=== PATIENT | male | born 1965 | race Caucasian/White ===

== ENCOUNTER 2017-08-29 13:20 | Inpatient (IN) | payer MEDICARE ==
[~2017-08-29] VITALS: Ht 188 cm; Wt 99.2 kg
[~2017-08-29 13:20] MED LIST: PERC7.5T13 PO; SOMA350T PO
[2017-08-29 13:22] VITALS: BP 140/90; PULSE 100; RESP 16; TEMP 98.9; O2SAT 99
[2017-08-29 14:23] LABS: AUTOMATED NEUTROPHIL # 6.5 TH/MM3 (1.8-7.7); BASOPHIL # 0.1 TH/MM3 (0-0.2); BASOPHIL % 0.6 % (0.0-2.0); EOSINOPHIL # 0.2 TH/MM3 (0-0.4); EOSINOPHIL % 1.6 % (0.0-4.0); HEMATOCRIT 46.3 % (39.0-51.0); HEMOGLOBIN 15.8 GM/DL (13.0-17.0); LYMPH % 24.9 % (9.0-44.0); LYMPHOCYTE # 2.5 TH/MM3 (1.0-4.8); MEAN CELL VOLUME 94.6 FL (80.0-100.0); MEAN CORPUSCULAR HEMOGLOBIN 32.2 PG (27.0-34.0); MEAN CORPUSCULAR HGB CONC 34.1 % (32.0-36.0); MONO % 7.2 % (0.0-8.0); MONOCYTE # 0.7 TH/MM3 (0-0.9); NEUT % 65.7 % (16.0-70.0); PLATELET COUNT 187 TH/MM3 (150-450); RED BLOOD COUNT 4.89 MIL/MM3 (4.50-5.90); RED CELL DISTRIBUTION WIDTH 13.9 % (11.6-17.2); WHITE BLOOD COUNT 9.9 TH/MM3 (4.0-11.0)
[2017-08-29 14:42] LABS: ALBUMIN 3.6 GM/DL (3.4-5.0); ALT (GPT) 48 U/L (12-78); AST (GOT) 22 U/L (15-37); BLOOD UREA NITROGEN 11 MG/DL (7-18); CALCIUM 8.7 MG/DL (8.5-10.1); CHLORIDE 103 MEQ/L (98-107); CREATININE 1.15 MG/DL (0.60-1.30); GLOMERULAR FILTRATION RATE 67 ML/MIN (>89); GLUCOSE,RANDOM 144 MG/DL (74-106); SODIUM (NA) 137 MEQ/L (136-145)
[2017-08-29 14:45] LABS: ALKALINE PHOSPHATASE 115 U/L (45-117); TOTAL BILIRUBIN ADULT 0.4 MG/DL (0.2-1.0)
[2017-08-29 14:52] LABS: ACETAMINOPHEN LESS THAN 2.0 MCG/ML (10.0-30.0)
--- NOTE | 2017-08-29 15:58 | PD ---
HPI Chief Complaint: Psychiatric Symptoms Time Seen by Provider: 15:33 Travel History International Travel<30 days: No Contact w/Intl Traveler<30days: No Traveled to known affect area: No History of Present Illness HPI 52-year-old male presents to the ED for evaluation of psychiatric illness. Patient has a history of bipolar disorder on depression. Per patient he used to be on medications but he no longer takes them. Per patient for the past 5 years has been having worsening depression apparently his family told him that if he did not come to get evaluated that we will Carey act him. Per patient he denies any homicidal ideation but states having some suicidal thoughts. Per patient he does not feel like life is worth living. He denies any drugs or alcohol. He denies any medical issues other than back pain which as chronic for him. He denies any new injuries. No stressors that could have exacerbated her depression. Patient for the most part is not very forthcoming with information. Patient has no allergies to medication. No other medical issues at this time. Unclear as to what exacerbated his symptoms today but appears to her family was very concerned. [facility] Social History Tobacco Use: No Allergies-Medications (Allergen,Severity, Reaction): Coded Allergies: No Known Allergies (Unverified , 03/02/15) Reported Meds & Prescriptions Reported Meds & Active Scripts Active Soma (Carisoprodol) 350 Mg Tab 350 Mg PO TID Percocet 7.5/325 (Oxycodone/Acetaminophen) Oxycodone 7.5/325 Acetaminophen Tab 1 Tab PO Q8HR PRN FOR PAIN Review of Systems Except as stated in HPI: all other systems reviewed are Neg Physical Exam Narrative GENERAL: SKIN: Warm and dry. HEAD: Atraumatic. Normocephalic. EYES: Pupils equal and round. No scleral icterus. No injection or drainage. ENT: No nasal bleeding or discharge. Mucous membranes pink and moist. Tongue midline. No uvula deviation. NECK: Trachea midline. No JVD. CARDIOVASCULAR: Regular rate and rhythm. No murmurs, S3, S4. RESPIRATORY: No accessory muscle use. Clear to auscultation. Breath sounds equal bilaterally. GASTROINTESTINAL: Abdomen soft, non-tender, nondistended. Hepatic and splenic margins not palpable. MUSCULOSKELETAL: Extremities without clubbing, cyanosis, or edema. No obvious deformities. NEUROLOGICAL: Awake and alert. No obvious cranial nerve deficits. Motor grossly within normal limits. Five out of 5 muscle strength in the arms and legs. Normal speech. PSYCHIATRIC: Appropriate mood and affect; insight and judgment normal. Data Data Last Documented VS Vital Signs Date Time Temp Pulse Resp B/P (MAP) Pulse Ox O2 Delivery O2 Flow Rate FiO2 08/29/17 13:22 98.9 100 16 140/90 (107) 99 Orders Orders Complete Blood Count With Diff (08/29/17 13:31) Comprehensive Metabolic Panel (08/29/17 13:31) Drug Screen, Random Urine (08/29/17 13:31) Alcohol (Ethanol) (08/29/17 13:31) Salicylates (Aspirin) (08/29/17 13:31) Tylenol (Acetaminophen) (08/29/17 13:31) Labs Laboratory Tests Test 08/29/17 13:37 White Blood Count 9.9 TH/MM3 Red Blood Count 4.89 MIL/MM3 Hemoglobin 15.8 GM/DL Hematocrit 46.3 % Mean Corpuscular Volume 94.6 FL Mean Corpuscular Hemoglobin 32.2 PG Mean Corpuscular Hemoglobin Concent 34.1 % Red Cell Distribution Width 13.9 % Platelet Count 187 TH/MM3 Mean Platelet Volume 8.0 FL Neutrophils (%) (Auto) 65.7 % Lymphocytes (%) (Auto) 24.9 % Monocytes (%) (Auto) 7.2 % Eosinophils (%) (Auto) 1.6 % Basophils (%) (Auto) 0.6 % Neutrophils # (Auto) 6.5 TH/MM3 Lymphocytes # (Auto) 2.5 TH/MM3 Monocytes # (Auto) 0.7 TH/MM3 Eosinophils # (Auto) 0.2 TH/MM3 Basophils # (Auto) 0.1 TH/MM3 CBC Comment DIFF FINAL Differential Comment Blood Urea Nitrogen 11 MG/DL Creatinine 1.15 MG/DL Random Glucose 144 MG/DL Total Protein 7.0 GM/DL Albumin 3.6 GM/DL Calcium Level 8.7 MG/DL Alkaline Phosphatase 115 U/L Aspartate Amino Transf (AST/SGOT) 22 U/L Alanine Aminotransferase (ALT/SGPT) 48 U/L Total Bilirubin 0.4 MG/DL Sodium Level 137 MEQ/L Potassium Level 3.7 MEQ/L Chloride Level 103 MEQ/L Carbon Dioxide Level 25.0 MEQ/L Anion Gap 9 MEQ/L Estimat Glomerular Filtration Rate 67 ML/MIN Salicylates Level 3.6 MG/DL Urine Opiates Screen NEG Acetaminophen Level LESS THAN 2.0 MCG/ML Urine Barbiturates Screen NEG Urine Amphetamines Screen NEG Urine Benzodiazepines Screen NEG Urine Cocaine Screen NEG Urine Cannabinoids Screen NEG Ethyl Alcohol Level LESS THAN 3 MG/DL MDM Medical Decision Making Medical Screen Exam Complete: Yes Emergency Medical Condition: Yes Medical Record Reviewed: Yes Interpretation(s) CBC & BMP Diagram 08/29/17 13:37 Total Protein 7.0, Albumin 3.6, Calcium Level 8.7, Alkaline Phosphatase 115, Aspartate Amino Transf (AST/SGOT) 22, Alanine Aminotransferase (ALT/SGPT) 48, Total Bilirubin 0.4 tox negative Differential Diagnosis Depression versus suicidal ideation versus anxiety versus adjustment disorder versus mood disorder versus bipolar disorder versus schizophrenia versus paranoid disorder versus psychosis versus substance abuse versus alcohol abuse versus alcohol induced psychosis versus homicidality addition versus cutting versus personality disorder Narrative Course 52-year-old male that presents to the ED for evaluation of psych. Patient with peripheral examinable found to have signs in symptoms consistent with psychiatric illness. Laps were ordered. Patient was not medically clear. Okay to be seen by psych. Mental health screening was discussed with the patient. Diagnosis Primary Impression: Depression Qualified Codes: F33.1 - Major depressive disorder, recurrent, moderate Ken Wynn Aug 29, 2017 15:58
[2017-08-29 17:00] VITALS: BP 129/73; PULSE 85; RESP 20
--- NOTE | 2017-08-29 19:46 | PD ---
History of Present Illness Chief Complaint: Psychiatric Symptoms Time Seen by Provider: 19:00 Travel History International Travel<30 Days: No Contact w/Intl Traveler<30days: No Known affected area: No Legal Status Legal Status: Voluntary History of Present Illness: History of Present Illness HPI 52-year-old male with reported history of bipolar disorder, depressed who presents to the ED on a voluntary basis for evaluation of psychiatric illness. He states that his brother threatened to follow [facility] act if he did not present to the hospital for an evaluation. The patient reports that for the past several months he has been experiencing depressed mood, decreased energy, interrupted sleep, anhedonia, isolative and withdrawn behavior, pervasive thoughts and feeling like his mind is racing. Most recently he has been reporting suicidal thoughts with a plan to blow his brains out or walk in front of a car. Patient reports that he has access to a weapon at home. He is unable to pinpoint specific stressor. Patient reports that he had a previous suicide attempt 5 years ago in which she placed a host in a car and locked himself in a garage that he was found by a neighbor. He was hospitalized after that attempt and began treatment with medications but stopped medications approximately 4 years ago. He states that in the past he was treated with Effexor, Valium, Risperdal, and trazodone. Electronic medical record is reviewed. No previous contact with [facility] psychiatry Department. Toxicology is negative. [facility] Past Medical History Bipolar Disorder: Yes Anxiety: Yes Depression: Yes High Cholesterol: Yes Diminished Hearing: No Hypertension: Yes Tetanus Vaccination: > 5 Years Influenza Vaccination: No Psychiatric History Psychiatric History Hx Psychiatric Treatment: Bipolar disorder and depression--diagnosed approx. 5 yrs. ago Has not been in treatment in over 4 years. One previous suicide attempt 5 years ago. History of Inpatient Treatment: Yes (5 years ago in [place].) Guns or firearms in home: Yes Social History Born and raised in [place]. Lift to [place] approximately 7 years ago. 3. Currently for the past 6 years. He is on disability due to back problems and has been on disability for 7 years. He lives with his 14- year-old son Hx Alcohol Use: Yes (rarely--once/month) Hx Tobacco Use: No Hx Substance Use: Yes (1ppd cigarettes) Substance Use Type: Nicotine/Cigarettes Hx of Substance Use Treatment: No Family Psychiatric History Mother with history of depression. Allergies-Medications (Allergen,Severity, Reaction): Coded Allergies: No Known Allergies (Unverified , 03/02/15) Reported Meds & Prescriptions Reported Meds & Active Scripts Active Soma (Carisoprodol) 350 Mg Tab 350 Mg PO TID Percocet 7.5/325 (Oxycodone/Acetaminophen) Oxycodone 7.5/325 Acetaminophen Tab 1 Tab PO Q8HR PRN FOR PAIN Review of Systems Musculoskeletal: COMPLAINS OF: Back pain Psychiatric: COMPLAINS OF: Depression, Suicidal Ideation Except as stated in HPI: all other systems reviewed are Neg Mental Status Examination Appearance: Appropriate (appears stated age. Maintaining basic hygiene.) Consciousness: Alert Orientation: x4 Motor Activity: Normal gait Speech: Unremarkable Language: Adequate Fund of Knowledge: Adequate Attention and Concentration: Easily Distracted Memory: Unremarkable Mood: Irritable, Other (depressed) Affect: Other (congruent to mood. Tearful at times.) Thought Process & Associations: Intact, Logical, Goal directed Thought Content: Appropriate Hallucination Type: None Delusion Type: None Suicidal Ideation: Yes Suicidal Plan: Yes Suicidal Intention: No Homicidal Ideation: No Homicidal Plan: No Homicidal Intention: No Insight: Fair Judgment: Adequate [facility] Medical Decision Making Medical Record Reviewed: Yes Assessment/Plan 52-year-old male with reported history of bipolar disorder, depressed who is currently not in treatment, presenting to emergency department for psychiatric evaluation. Reports symptoms of depression including decreased energy, impaired sleep, anhedonia, I suggested a withdrawn, persistent negative thoughts, racing thoughts as well as suicidal thoughts with plan of blowing his brains out or walking in front of a car. The patient at this time meets criteria for inpatient treatment for further evaluation, medication, and to maintain safety. He remains on voluntary status. Orders Orders Complete Blood Count With Diff (08/29/17 13:31) Comprehensive Metabolic Panel (08/29/17 13:31) Drug Screen, Random Urine (08/29/17 13:31) Alcohol (Ethanol) (08/29/17 13:31) Salicylates (Aspirin) (08/29/17 13:31) Tylenol (Acetaminophen) (08/29/17 13:31) Psych Screen (08/29/17 16:01) Diet Regular Basic (08/29/17 Dinner) Results Vital Signs Date Time Temp Pulse Resp B/P (MAP) Pulse Ox O2 Delivery O2 Flow Rate FiO2 08/29/17 17:00 85 20 129/73 (91) Room Air 08/29/17 13:22 98.9 100 16 140/90 (107) 99 Laboratory Tests Test 08/29/17 13:37 White Blood Count 9.9 Red Blood Count 4.89 Hemoglobin 15.8 Hematocrit 46.3 Mean Corpuscular Volume 94.6 Mean Corpuscular Hemoglobin 32.2 Mean Corpuscular Hemoglobin Concent 34.1 Red Cell Distribution Width 13.9 Platelet Count 187 Mean Platelet Volume 8.0 Neutrophils (%) (Auto) 65.7 Lymphocytes (%) (Auto) 24.9 Monocytes (%) (Auto) 7.2 Eosinophils (%) (Auto) 1.6 Basophils (%) (Auto) 0.6 Neutrophils # (Auto) 6.5 Lymphocytes # (Auto) 2.5 Monocytes # (Auto) 0.7 Eosinophils # (Auto) 0.2 Basophils # (Auto) 0.1 CBC Comment DIFF FINAL Differential Comment Blood Urea Nitrogen 11 Creatinine 1.15 Random Glucose 144 Total Protein 7.0 Albumin 3.6 Calcium Level 8.7 Alkaline Phosphatase 115 Aspartate Amino Transf (AST/SGOT) 22 Alanine Aminotransferase (ALT/SGPT) 48 Total Bilirubin 0.4 Sodium Level 137 Potassium Level 3.7 Chloride Level 103 Carbon Dioxide Level 25.0 Anion Gap 9 Estimat Glomerular Filtration Rate 67 Salicylates Level 3.6 Urine Opiates Screen NEG Acetaminophen Level LESS THAN 2.0 Urine Barbiturates Screen NEG Urine Amphetamines Screen NEG Urine Benzodiazepines Screen NEG Urine Cocaine Screen NEG Urine Cannabinoids Screen NEG Ethyl Alcohol Level LESS THAN 3 Diagnosis Primary Impression: Bipolar disorder Admitting Information Admitting Physician Requests: Admit Problem Qualifiers Primary Impression: Bipolar disorder Qualified Codes: F31.32 - Bipolar disorder, current episode depressed, moderate Gonzalez,Opal MATAMOROSP Aug 29, 2017 19:46
[2017-08-29] MEDS ORDERED: MAGNESIUM HYDROXIDE SUSP 30 ML CUP PO PRN (20:00)
[2017-08-29] MEDS ORDERED: ALUMINUM/MAGNESIUM/SIMETH 30 ML CUP PO PRN (20:00)
[2017-08-29] MEDS ORDERED: ACETAMINOPHEN 325 MG TAB PO PRN (20:00)
[2017-08-29 22:21] VITALS: BP 134/76; PULSE 88; RESP 18; TEMP 98.3
[2017-08-30 06:45] VITALS: BP 118/63; PULSE 60; RESP 18; TEMP 98.7; O2SAT 99
--- NOTE | 2017-08-30 11:22 | EKG ---
Date Performed: 08/30/2017 Time Performed: 07:52:13 PTAGE: 52 years EKG: Sinus rhythm NORMAL ECG NO PREVIOUS TRACING DOCTOR: Giovanni Lee Interpretating Date/Time 08/30/2017 11:22:04
[2017-08-30 13:38] LABS: BICARBONATE 27.8 MEQ/L (21.0-32.0); BLOOD UREA NITROGEN 16 MG/DL (7-18); CALCIUM 8.4 MG/DL (8.5-10.1); CHLORIDE 104 MEQ/L (98-107); CHOLESTEROL 144 MG/DL (120-200); CREATININE 1.18 MG/DL (0.60-1.30); GLOMERULAR FILTRATION RATE 65 ML/MIN (>89); GLUCOSE,RANDOM 158 MG/DL (74-106); SODIUM (NA) 138 MEQ/L (136-145)
[2017-08-30 13:50] LABS: CHOLESTEROL/ HDL RATIO 3.77 RATIO; HDL CHOLESTEROL 38.1 MG/DL (40.0-60.0); LDL CHOLESTEROL 62 MG/DL (0-99); TRIGLYCERIDES 222 MG/DL (42-150)
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
[2017-08-30] MEDS: SERTRALINE HCL 50 MG TAB PO SCH (15:02)
[2017-08-30 16:32] LABS: HEMOGLOBIN A1C 5.7 % (4.3-6.0)
[2017-08-30 18:00] VITALS: BP 139/84; PULSE 73; RESP 16; TEMP 97.3; O2SAT 98
[2017-08-30] MEDS: ARIPiprazole 10 MG TAB PO SCH (20:28)
[2017-08-30] MEDS ORDERED: diphenhydrAMINE HCL 50 MG CAP PO PRN (21:00)
[2017-08-30] MEDS: diphenhydrAMINE HCL 50 MG CAP PO PRN (23:42)
[2017-08-31 04:58] VITALS: BP 125/84; PULSE 70; RESP 16; TEMP 98.1; O2SAT 98
[2017-08-31] MEDS: SERTRALINE HCL 50 MG TAB PO SCH (09:00)
--- NOTE | 2017-08-31 13:23 | HHI.PYPN ---
Subjective Chief Complaint: depressed suicidal Remarks Patient seen in his room with nurse Bazan, chart review, patient compliant medications. Patient continues markedly depressed with 2-3+ psychomotor retarded, very poor eye contact, responses brief quiet at times mildly irritable. He does deny voices or visions, but acknowledges to me continued suicidality. There is also hopelessness with her today. He said he has not been in contact with his family. Encouraged him to attempt to maintain some socialization and out of the day room. For now continue treatment Review of Systems Except as stated in HPI: all other systems reviewed are Neg Mental Status Examination Appearance: Appropriate (appears stated age. Maintaining basic hygiene.) Consciousness: Alert Orientation: x4 Motor Activity: Normal gait Speech: Unremarkable Language: Adequate Fund of Knowledge: Adequate Attention and Concentration: Easily Distracted Memory: Unremarkable Mood: Irritable, Other (depressed) Affect: Other (marked decreased range and intensity, tearful) Thought Process & Associations: Intact, Logical, Goal directed Thought Content: Appropriate Hallucination Type: None Delusion Type: None Suicidal Ideation: Yes Suicidal Plan: Yes Suicidal Intention: No Homicidal Ideation: No Homicidal Plan: No Homicidal Intention: No Insight: Fair Judgment: Adequate Results Vitals/IOs Vital Signs Date Time Temp Pulse Resp B/P (MAP) Pulse Ox O2 Delivery O2 Flow Rate FiO2 08/31/17 04:58 98.1 70 16 125/84 (98) 98 08/29/17 17:00 Room Air Intake and Output 08/31/17 08/31/17 09/01/17 08:00 16:00 00:00 Intake Total 480 ml Balance 480 ml Assessment & Plan Problem List: (1) Bipolar disorder ICD Codes: F31.9 - Bipolar disorder, unspecified Status: Acute Assessment & Plan Estimated LOS: days patient continues depressed anhedonic, compliant medications. Continues suicidal. Justification for Cont. Inpt. At this time patient will decompensate if placed in the lower level of care Discharge Planning Return home to family Request HC Surrog/Guard Advoc?: No Problem Qualifiers (1) Bipolar disorder: Qualified Codes: F31.4 - Bipolar disorder, current episode depressed, severe, without psychotic features Andrew Lema MD Aug 31, 2017 13:23
[2017-08-31 18:26] VITALS: BP 123/82; PULSE 76; RESP 18; TEMP 99; O2SAT 99
[2017-08-31] MEDS: diphenhydrAMINE HCL 50 MG CAP PO PRN (20:18)
[2017-08-31] MEDS: ARIPiprazole 10 MG TAB PO SCH (20:18)
[2017-08-31] MEDS: hydrOXYzine HCL 50 MG TAB PO PRN (20:18)
[2017-09-01 04:51] VITALS: BP 130/85; PULSE 65; RESP 18; TEMP 98
[2017-09-01] MEDS: SERTRALINE HCL 50 MG TAB PO SCH (08:09)
--- NOTE | 2017-09-01 13:18 | HHI.PYPN ---
Subjective Chief Complaint: depressed suicidal Remarks Patient seen sitting on the side of his bed in his room. Floor staff present throughout session. Patient chart review, compliant medications. Patient still depressed with poor eye contact continues to acknowledge suicidal ideation though perhaps the intent is less. He states he did sleep about 3 hours last night though was interrupted. He still continues markedly hopeless and helpless with guilt related to relationship with her son. For now continue treatment Review of Systems Except as stated in HPI: all other systems reviewed are Neg Mental Status Examination Appearance: Appropriate (appears stated age. Maintaining basic hygiene.) Consciousness: Alert Orientation: x4 Motor Activity: Normal gait Speech: Unremarkable Language: Adequate Fund of Knowledge: Adequate Attention and Concentration: Easily Distracted Memory: Unremarkable Mood: Irritable, Other (depressed) Affect: Other (marked decreased range and intensity, tearful) Thought Process & Associations: Intact, Logical, Goal directed Thought Content: Appropriate Hallucination Type: None Delusion Type: None Suicidal Ideation: Yes Suicidal Plan: Yes Suicidal Intention: No Homicidal Ideation: No Homicidal Plan: No Homicidal Intention: No Insight: Fair Judgment: Adequate Results Vitals/IOs Vital Signs Date Time Temp Pulse Resp B/P (MAP) Pulse Ox O2 Delivery O2 Flow Rate FiO2 09/01/17 04:51 98.0 65 18 130/85 (100) 08/31/17 18:26 99 08/29/17 17:00 Room Air Intake and Output 09/01/17 09/01/17 09/02/17 08:00 16:00 00:00 Intake Total 720 ml Balance 720 ml Assessment & Plan Problem List: (1) Bipolar disorder ICD Codes: F31.9 - Bipolar disorder, unspecified Status: Acute Assessment & Plan Estimated LOS: days patient continues depressed melancholic and anhedonic, with psychomotor retardation. Is compliant with his medications. Is able contracted to no harm at this time. Justification for Cont. Inpt. At this time patient will decompensate if placed on lower level of care Discharge Planning Probably to return home to family Request HC Surrog/Guard Advoc?: No Problem Qualifiers (1) Bipolar disorder: Qualified Codes: F31.4 - Bipolar disorder, current episode depressed, severe, without psychotic features Andrew Lema MD Sep 01, 2017 13:18
[2017-09-01 18:14] VITALS: BP 140/85; PULSE 72; RESP 17; TEMP 98.5; O2SAT 96
[2017-09-01] MEDS: ARIPiprazole 10 MG TAB PO SCH (20:38)
[2017-09-01] MEDS ORDERED: traZODone HCL 50 MG TAB PO SCH (21:00)
[2017-09-01] MEDS: diphenhydrAMINE HCL 50 MG CAP PO PRN (22:04)
[2017-09-01] MEDS: hydrOXYzine HCL 50 MG TAB PO PRN (22:41)
[2017-09-02 05:52] VITALS: BP 129/74; PULSE 65; RESP 16; TEMP 98.1; O2SAT 96
[2017-09-02] MEDS: SERTRALINE HCL 50 MG TAB PO SCH (08:55)
--- NOTE | 2017-09-02 11:03 | HHI.PYPN ---
Subjective Chief Complaint: depressed suicidal Remarks Patient was seen and case discussed with nursing. Patient says his mood has been improving and he denies suicidal or homicidal ideation intent or plan. Complaining of poor sleep. Affect is quite anxious. Says he is concerned about the son at home. Behaving well on the unit Mental Status Examination Appearance: Appropriate (appears stated age. Maintaining basic hygiene.) Consciousness: Alert Orientation: x4 Motor Activity: Normal gait Speech: Unremarkable Language: Adequate Fund of Knowledge: Adequate Attention and Concentration: Easily Distracted Memory: Unremarkable Mood: Sad Affect: Anxious Thought Process & Associations: Intact, Logical, Goal directed Thought Content: Appropriate Hallucination Type: None Delusion Type: None Suicidal Ideation: No Suicidal Plan: No Suicidal Intention: No Homicidal Ideation: No Homicidal Plan: No Homicidal Intention: No Insight: Fair Judgment: Adequate Results Vitals/IOs Vital Signs Date Time Temp Pulse Resp B/P (MAP) Pulse Ox O2 Delivery O2 Flow Rate FiO2 09/02/17 05:52 98.1 65 16 129/74 (92) 96 08/29/17 17:00 Room Air Assessment & Plan Problem List: (1) Bipolar disorder ICD Codes: F31.9 - Bipolar disorder, unspecified Status: Acute Assessment & Plan Increase trazodone to 100 mg by mouth daily at bedtime Justification for Cont. Inpt. Patient would decompensate in a less restrictive setting Request HC Surrog/Guard Advoc?: No Problem Qualifiers (1) Bipolar disorder: Qualified Codes: F31.4 - Bipolar disorder, current episode depressed, severe, without psychotic features Melo Epstein DO Sep 02, 2017 11:03
[2017-09-02 17:14] VITALS: BP 132/93; PULSE 76; RESP 18; TEMP 98; O2SAT 98
[2017-09-02] MEDS: traZODone HCL 100 MG TAB PO SCH (21:00)
[2017-09-02] MEDS: diphenhydrAMINE HCL 50 MG CAP PO PRN (21:00)
[2017-09-02] MEDS: ARIPiprazole 10 MG TAB PO SCH (21:00)
[2017-09-03 06:00] VITALS: BP 120/74; PULSE 70; RESP 16; TEMP 98.3; O2SAT 97
[2017-09-03] MEDS: SERTRALINE HCL 50 MG TAB PO SCH (09:25)
--- NOTE | 2017-09-03 11:51 | HHI.PYPN ---
Subjective Chief Complaint: depressed suicidal Remarks Patient was seen and case discussed nursing. Patient continues to improve. He is asking about going home. He is less seclusive. Describes his mood today is an 8 out of 10. Sleep has improved with the higher dose of trazodone Mental Status Examination Appearance: Appropriate (appears stated age. Maintaining basic hygiene.) Consciousness: Alert Orientation: x4 Motor Activity: Normal gait Speech: Unremarkable Language: Adequate Fund of Knowledge: Adequate Attention and Concentration: Easily Distracted Memory: Unremarkable Mood: Sad Affect: Anxious Thought Process & Associations: Intact, Logical, Goal directed Thought Content: Appropriate Hallucination Type: None Delusion Type: None Suicidal Ideation: No Suicidal Plan: No Suicidal Intention: No Homicidal Ideation: No Homicidal Plan: No Homicidal Intention: No Insight: Fair Judgment: Adequate Results Vitals/IOs Vital Signs Date Time Temp Pulse Resp B/P (MAP) Pulse Ox O2 Delivery O2 Flow Rate FiO2 09/03/17 06:00 98.3 70 16 120/74 (89) 97 Assessment & Plan Problem List: (1) Bipolar disorder ICD Codes: F31.9 - Bipolar disorder, unspecified Status: Acute Assessment & Plan Increase Zoloft to 50 mg daily Justification for Cont. Inpt. Patient will decompensate in a less restrictive setting Request HC Surrog/Guard Advoc?: No Problem Qualifiers (1) Bipolar disorder: Qualified Codes: F31.4 - Bipolar disorder, current episode depressed, severe, without psychotic features Melo Epstein DO Sep 03, 2017 11:51
[2017-09-03] MEDS: hydrOXYzine HCL 50 MG TAB PO PRN ×2 (14:05→20:42)
[2017-09-03 18:18] VITALS: BP 135/91; PULSE 73; RESP 18; TEMP 97.7; O2SAT 99
[2017-09-03] MEDS: traZODone HCL 100 MG TAB PO SCH (20:42)
[2017-09-03] MEDS: ARIPiprazole 10 MG TAB PO SCH (20:42)
[2017-09-04] MEDS: hydrOXYzine HCL 50 MG TAB PO PRN (02:19)
[2017-09-04 05:52] VITALS: BP 131/73; PULSE 56; RESP 18; TEMP 98.5; O2SAT 99
[2017-09-04] MEDS ORDERED: SERTRALINE HCL 50 MG TAB PO SCH (09:00)
[2017-09-04] MEDS ORDERED: ARIP1TAB12 PO (13:26)
[2017-09-04] MEDS ORDERED: ZOLO50TA PO (13:26)
[2017-09-04] MEDS ORDERED: TRAZ100T10 PO (13:26)
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
== END 2017-09-04 15:45 | disposition home or self-care (01) | DRG 885 ==
LOC: NEPJ 13:20 → NEDA 19:51 → H260 21:24
PROVIDERS: ADMIT Psychiatry & Neurology Psychiatry; ATTEND Psychiatry & Neurology Psychiatry
DX: F31.9 Bipolar disorder, unspecified (principal); G89.29 Other chronic pain; M54.9 Dorsalgia, unspecified; Z81.8 Family history of other mental and behavioral disorders; Z87.891 Personal history of nicotine dependence
CPT/HCPCS: 80048; 80053; 80061; 80307; 83036; 84443; 85025; 93005; 99285; Q0163